=== PATIENT | female | born 1945 | race Asian ===

== ENCOUNTER 2018-09-29 10:12 | Outpatient (CLI) | payer OTHER | END 2018-09-29 19:11 | disposition home or self-care (01) | LOC: RAD 10:12 | DX: M79.89 Other specified soft tissue disorders (principal); M25.562 Pain in left knee ==

== ENCOUNTER 2018-11-23 14:38 | Outpatient (CLI) | payer OTHER | END 2018-11-23 19:48 | disposition home or self-care (01) | LOC: LAB 14:38 | DX: R31.9 Hematuria, unspecified (principal) | CPT/HCPCS: 87086; 87088 ==

== ENCOUNTER 2018-11-26 09:54 | Outpatient (CLI) | payer OTHER ==
[2018-11-26 10:10] LABS: PLATELET COUNT 248 K/uL (152-353)
[2018-11-26 10:25] LABS: POTASSIUM 3.5 mmol/L (3.6-5.2)
== END 2018-11-26 23:37 | disposition home or self-care (01) ==
LOC: LABW 09:54
PROVIDERS: Physician Assistant
DX: R31.9 Hematuria, unspecified (principal)
CPT/HCPCS: 36415; 80053; 81000; 85027